=== PATIENT | female | born 1965 | race Caucasian/White ===

== ENCOUNTER 2022-06-26 11:18 | Emergency (ER) | payer BC ==
[2022-06-26] MEDS ORDERED: Ondansetron 4 MG/2 ML SDV IVPUSH ONE (11:47)
[2022-06-26] MEDS ORDERED: Sodium Chloride 0.9% 10 ML Syringe FLUSH PRN (11:47)
[2022-06-26] MEDS ORDERED: HYDROmorphone 0.5 MG/0.5 ML Syringe IVPUSH ONE (11:48)
[2022-06-26 11:55] LABS: BASOPHILS ABSOLUTE AUTO 0.03 K/mm3 (0.01-0.08); BASOPHILS PERCENT AUTO 0.3 % (0.1-1.2); EOSINOPHILS ABSOLUTE AUTO 0.29 K/mm3 (0.04-0.36); EOSINOPHILS PERCENT AUTO 2.9 (0.7-5.8); HEMATOCRIT 41.5 % (34.1-44.9); HEMOGLOBIN 13.2 gm/dl (11.2-15.7); IMMATURE GRAN ABSOLUTE AUTO 0.01 K/mm3 (0.00-0.10); IMMATURE GRAN PERCENT AUTO 0.1 % (<=1.0); LYMPHOCYTES ABSOLUTE AUTO 4.44 K/mm3 (1.18-3.74); LYMPHOCYTES PERCENT AUTO 44.7 % (19.3-51.7); MEAN CORPUSCULAR HEMOGLOBIN 30.8 pg (25.6-32.2); MEAN CORPUSCULAR HGB CONC 31.8 g/dl (32.2-35.5); MEAN CORPUSCULAR VOLUME 96.7 fl (79.4-94.8); MEAN PLATELET VOLUME 9.8 fl (9.4-12.3); MONOCYTES ABSOLUTE AUTO 0.71 K/mm3 (0.24-0.36); MONOCYTES PERCENT AUTO 7.1 % (4.7-12.5); NEUTROPHILS ABSOLUTE AUTO 4.46 K/mm3 (1.56-6.13); NEUTROPHILS PERCENT AUTO 44.9 % (34.0-71.1); PLATELET COUNT,PLT 266 K/mm3 (182-369); RED BLOOD CELL COUNT 4.29 M/mm3 (3.98-5.22); WHITE BLOOD CELL COUNT,WBC 9.94 K/mm3 (3.98-10.04)
[2022-06-26] MEDS ORDERED: Sodium Chloride 0.9% 1,000 ML IV SCH (12:00)
[2022-06-26 12:07] LABS: A/G RATIO 0.9 (1-2); ALANINE AMINOTRANSFERASE,ALT 32 U/L (14-59); ALBUMIN 3.3 g/dl (3.4-5.0); ALKALINE PHOSPHATASE 124 U/L (46-116); ANION GAP 12.9 (5-15); ASPARTATE AMNIOTRANSFERASE,AST 33 U/L (15-37); BILIRUBIN TOTAL 0.4 mg/dL (0.2-1.0); BLOOD UREA NITROGEN,BUN 15 mg/dL (7-18); BUN/CREATININE RATIO 16.7 (14-18); CALCIUM 8.6 mg/dL (8.5-10.1); CARBON DIOXIDE,CO2 23 mEq/L (21-32); CHLORIDE,CL 104 mEq/L (98-107); CREATININE 0.9 mg/dL (0.55-1.02); ESTIMATED GFR 75 mL/min (>60); GLUCOSE RANDOM 109 mg/dL (70-99); POTASSIUM,K 3.9 mEq/L (3.5-5.1); PROTEIN TOTAL,TP 7.2 g/dl (6.4-8.2); SODIUM,NA 136 mEq/L (136-145); TROPONIN I HIGH SENSITIVITY 5 pg/mL (<=51)
[2022-06-26] MEDS ORDERED: Iopamidol 612 MG/ML 100 ML Bottle IVPUSH ONE (12:12)
[2022-06-26] MEDS ORDERED: Sodium Chloride 0.9% 10 ML Syringe FLUSH ONE (12:12)
[2022-06-26 12:28] LABS: APPEARANCE,URINE CLEAR (Clear); BILIRUBIN,URINE NEGATIVE (Negative); COLOR,URINE YELLOW (Yellow); GLUCOSE,URINE NEGATIVE (Negative); KETONES,URINE NEGATIVE (Negative); LEUKOCYTE ESTERASE,URINE 2+ (Negative); NITRITE,URINE NEGATIVE (Negative); OCCULT BLOOD,URINE NEGATIVE (Negative); PROTEIN,URINE NEGATIVE (Negative); UROBILINOGEN,URINE 0.2 (0.2-1.0)
[2022-06-26 12:41] LABS: BACTERIA,URINE FEW /hpf (FEW); MUCUS,URINE RARE /hpf (FEW); RBC,URINE 0-5 /hpf (0-5); SQUAMOUS EPITHELIAL CELLS,UR 0-5 /hpf (0-5)
== END 2022-06-26 14:42 | disposition home or self-care (01) ==
LOC: JD.ED 11:18
DX: R10.11 Right upper quadrant pain (principal); F17.210 Nicotine dependence, cigarettes, uncomplicated
CPT/HCPCS: 36415; 71045; 74177; 80053; 81001; 83690; 84484; 85025; 93005; 96361; 96374; 96375; 99284; J1170; J2405; J3490; J7030; Q9967; 93010

== ENCOUNTER 2022-09-26 12:23 | Day surgery (SDC) | payer BC ==
[~2022-09-26 12:23] MED LIST: Acetaminophen 325 MG Tab PO SCH; Gabapentin 300 MG Cap PO SCH; Lactated Ringers 1,000 ML IV SCH; Sodium Chloride 0.9% 10 ML Syringe FLUSH PRN; Sodium Chloride 0.9% 10 ML Syringe FLUSH SCH
[2022-09-26] MEDS ORDERED: Midazolam 1 MG/ML 2 ML SDV ONE (12:48)
[2022-09-26] MEDS ORDERED: fentaNYL 100 MCG/2 ML SDV ONE ×2 (12:49→14:46)
[2022-09-26] MEDS ORDERED: Propofol 200 MG/20 ML SDV ONE ×2 (12:49→13:12)
[2022-09-26] MEDS ORDERED: Lidocaine 1% 2 ML ONE (12:49)
[2022-09-26] MEDS ORDERED: Rocuronium 50 MG/5 ML Vial ONE (12:49)
[2022-09-26] MEDS ORDERED: Sugammadex Sodium 200 MG/2 ML VIAL ONE (12:55)
[2022-09-26] MEDS ORDERED: Ondansetron 4 MG/2 ML SDV IVPUSH PRN (13:07)
[2022-09-26] MEDS ORDERED: fentaNYL 100 MCG/2 ML SDV IVPUSH PRN (13:07)
[2022-09-26] MEDS ORDERED: HYDROmorphone 0.5 MG/0.5 ML Syringe IVPUSH PRN (13:07)
[2022-09-26] MEDS ORDERED: ceFAZolin 2 GM Vial ONE (13:12)
[2022-09-26] MEDS ORDERED: Acetaminophen 325 MG Tab PO SCH (13:15)
[2022-09-26] MEDS ORDERED: Gabapentin 300 MG Cap PO SCH (13:15)
[2022-09-26] MEDS ORDERED: Lidocaine 1% 30 ML SDV ONE (13:21)
[2022-09-26] MEDS ORDERED: Bupivacaine 0.5%/EPINEPHrine 1:200,000 50 ML MDV ONE (13:21)
[2022-09-26] MEDS ORDERED: EPINEPHrine 1 MG/ML SDV ONE (13:52)
[2022-09-26] MEDS ORDERED: Dexamethasone 4 MG/ML 5 ML MDV ONE (14:19)
[2022-09-26] MEDS ORDERED: Ondansetron 4 MG/2 ML SDV ONE ×2 (14:19→14:58)
[2022-09-26] MEDS ORDERED: Ketorolac 30 MG/ML SDV ONE (14:19)
[2022-09-26] MEDS ORDERED: Labetalol 100 MG/20 ML MDV ONE (14:30)
[2022-09-26] MEDS ORDERED: Acetaminophen/oxyCODONE 325-5 MG Tab PO PRN (15:49)
== END 2022-09-26 17:25 | disposition home or self-care (01) ==
LOC: JD.SDS 12:23
PROVIDERS: ATTEND Surgery
DX: K80.10 Calculus of gallbladder with chronic cholecystitis without obstruction (principal); K82.8 Other specified diseases of gallbladder; F41.9 Anxiety disorder, unspecified; F32.A Depression, unspecified; F17.200 Nicotine dependence, unspecified, uncomplicated; Z85.820 Personal history of malignant melanoma of skin; Z90.710 Acquired absence of both cervix and uterus
CPT/HCPCS: 47562; A9270; J0171; J0690; J1100; J1885; J2250; J2405; J2704; J3010; J3490; J7120; 00790